=== PATIENT | female | born 1950 | race Caucasian/White ===

== ENCOUNTER 2021-01-28 14:01 | Outpatient (CLI) | payer MEDICARE, SELFPAY | END 2021-01-28 14:02 | disposition home or self-care (01) | LOC: ANHCOVIDVC 14:01 | PROVIDERS: PCP Internal Medicine | DX: Z23 Encounter for immunization (principal) | CPT/HCPCS: 0001A; 91300 ==

== ENCOUNTER 2022-02-14 17:47 | Emergency (ER) | payer MEDICARE, SELFPAY ==
--- NOTE | ~2022-02-14 | XR_ITS ---
EXAMINATION: XR chest 2V Exam Date/Time: 02/14/2022 18:30 CDT CLINICAL HISTORY: prod cough diff breathing x 2 weeks non smoker Comparison: None available. RESULT: Lines, tubes, and devices: Gastric banding. Lungs and pleura: Clear. Cardiomediastinal silhouette: Stable cardiomediastinal silhouette. Other: No acute osseous or upper abdominal finding. IMPRESSION: No acute cardiopulmonary process Reviewed, dictated and finalized at location K.
[2022-02-14 18:00] VITALS: BP 145/71; PULSE 84; RESP 16; TEMP 37.8; O2SAT 96
--- NOTE | 2022-02-14 18:14 | ED.URI ---
HPI - URI/Sore Throat General Chief Complaint: Upper Respiratory Infection Stated Complaint: Congestion Time Seen by Provider: 02/14/22 18:21 Source: patient, family, RN notes reviewed and old records reviewed Mode of arrival: ambulatory Limitations: no limitations History of Present Illness HPI Narrative: 71-year-old female presents to the [facility] with complaints, shortness of breath fever, chills worse over the last couple of days, states is been going on a couple of weeks. Has talked to her kidney doctor and her primary care doctor. Patient states her kidney doctor will not call in a prescription. Patient unaware if primary care doctor called in anything, per pharmacy record doxycycline for 10 days was called in. Patient states she is taken a home COVID test which was negative. MD elicited complaint: fever Related Data Home Medications Medication Instructions Recorded Confirmed acetaminophen-codeine 1 tablet PO Q6-8H PRN 02/14/22 02/14/22 albuterol sulfate See Rx Instructions .ROUTE 02/14/22 02/14/22 .COMPLEX PRN alprazolam See Rx Instructions .ROUTE 02/14/22 02/14/22 .COMPLEX PRN amiloride 5 mg PO DAILY 02/14/22 02/14/22 buspirone 15 mg PO TID 02/14/22 02/14/22 colchicine 0.6 mg PO DAILY 02/14/22 02/14/22 desvenlafaxine succinate 50 mg PO DAILY 02/14/22 02/14/22 diclofenac sodium 2 g TOPICAL DAILY PRN 02/14/22 02/14/22 doxycycline hyclate 100 mg PO BID 02/14/22 02/14/22 ergocalciferol (vitamin D2) 1,250 mcg PO WEEKLY 02/14/22 02/14/22 fluticasone propionate 2 spray INTRANASAL DAILY 02/14/22 02/14/22 hydroxyzine HCl 25 mg PO DAILY 02/14/22 02/14/22 insulin aspart U-100 [Novolog 100 unit SUBCUT DAILY 02/14/22 02/14/22 Flexpen U-100 Insulin] insulin glargine [Lantus Solostar 100 unit SUBCUT DAILY 02/14/22 02/14/22 U-100 Insulin] levothyroxine 25 mcg PO DAILY 02/14/22 02/14/22 levothyroxine 200 mcg PO DAILY 02/14/22 02/14/22 mupirocin calcium 1 applic TOPICAL DAILY 02/14/22 02/14/22 nystatin 100,000 unit TOPICAL DAILY 02/14/22 02/14/22 potassium chloride 20 meq PO DAILY 02/14/22 02/14/22 sertraline 100 mg PO DAILY 02/14/22 02/14/22 topiramate 25 mg PO DAILY 02/14/22 02/14/22 trazodone 50 mg PO DAILY 02/14/22 02/14/22 Allergies Allergy/AdvReac Type Severity Reaction Status Date / Time Quinolones Allergy Mild Itching Verified 02/14/22 18:52 LEVAQUIN Allergy Mild Itching Uncoded 02/14/22 18:52 Review of Systems Review of Systems: All systems reviewed & are unremarkable except as noted in HPI and below Constitutional: Constitutional: Reports as per HPI, Reports no additional constitutional complaints, Denies chills, Reports fatigue, Reports fever(s) and Denies headache(s) Eyes: Eyes: Reports no additional eye complaints ENT: Reports as per HPI, Denies vertigo, Denies dizziness, Denies headache(s), Denies nasal congestion and Denies sore throat Cardiovascular: Cardiovascular: Reports no additional cardiovascular complaints, Denies chest pain, Denies syncope, Denies rapid heart rate and Denies dyspnea Respiratory: Respiratory: Reports as per HPI, Reports chest congestion, Reports cough, Reports dyspnea and Denies wheezing Gastrointestinal: Gastrointestinal: Reports no additional gastrointestinal complaints, Denies abdominal pain, Denies diarrhea, Denies nausea and Denies vomiting Musculoskeletal: Musculoskeletal: Reports no additional musculoskeletal complaints and Denies numbness Integumentary/Breasts: Skin/Breast: Reports system reviewed and no additional complaints, except as docu and Denies rash Neurologic: Reports system reviewed and no additional complaints, except as documented, Denies vertigo, Denies dizziness, Denies syncope, Denies headache(s), Denies focal weakness and Denies numbness Psychiatric: Psychiatric: Reports no additional psychiatric complaints Allergic/Immunologic: Allergic/Immunologic: Reports no additional allergic/immunologic complaints and Denies wheezing PMFSH Past Medical History
== END 2022-02-14 19:20 | disposition home or self-care (01) ==
PROVIDERS: Emergency Provider Nurse Practitioner
DX: J40 Bronchitis, not specified as acute or chronic (principal); E11.9 Type 2 diabetes mellitus without complications; M79.7 Fibromyalgia; F41.9 Anxiety disorder, unspecified; F32.A Depression, unspecified; E07.9 Disorder of thyroid, unspecified
CPT/HCPCS: 71046; 87804; 99213; G0463